=== PATIENT | male | born 1965 | race Caucasian/White ===

== ENCOUNTER 2018-01-17 00:15 | Inpatient (IN) | payer BC ==
[2018-01-17] VITALS (7 sets, daily range): BP systolic 105–147
[~2018-01-17] VITALS: Ht 175.3 cm; Wt 68.9 kg
[~2018-01-17 00:15] MED LIST: CYCL-365 PO; ENSURE PLUS GT; IBUP-784 PO; LEVO75TA7 GT; OMEP20CA10 GT
[2018-01-17] MEDS ORDERED: NACL 0.9% 1,000 ML IV ONE (00:34)
[2018-01-17] MEDS ORDERED: ONDANSETRON HCL 4 MG/2 ML VIAL IVP ONE (00:45)
[2018-01-17] MEDS ORDERED: KETOROLAC TROMETHAMINE 30 MG VIAL IVP ONE (00:45)
[2018-01-17 01:04] LABS: BASOPHILS # (AUTO) 0.1 K/uL (0.0-0.2); EOSINOPHILS # (AUTO) 0.3 K/uL (0.0-0.4); EOSINOPHILS % (AUTO) 5.3 % (0.0-4.0); HEMATOCRIT 44.3 % (36-54); HEMOGLOBIN 15.1 g/dL (14.0-18.0); LYMPHOCYTES # (AUTO) 2.1 K/uL (1.0-5.5); LYMPHOCYTES % (AUTO) 33.5 % (20.5-51.5); MEAN CORPUSCULAR HEMOGLOBIN 32 pg (27-31); MEAN CORPUSCULAR HGB CONC 34 % (32-36); MEAN CORPUSCULAR VOLUME 93 fL (79.0-98.0); MONOCYTES # (AUTO) 0.5 K/uL (0.0-1.0); MONOCYTES % (AUTO) 7.3 % (1.7-9.3); NEUTROPHILS # (AUTO) 3.3 K/uL (1.8-7.7); NEUTROPHILS % (AUTO) 52.9 % (40.0-70.0); PLATELET COUNT (AUTO) 275 K/uL (130-430); RED BLOOD CELL COUNT(AUTO) 4.74 MIL/uL (4.2-6.2); RED CELL DISTRIBUTION WIDTH 11.7 % (9.0-15.0); WHITE BLOOD COUNT (AUTO) 6.3 K/uL (4.8-10.8)
[2018-01-17 01:15] LABS: CALCIUM 8.8 mg/dL (8.4-11.0); CREATININE 1.28 mg/dL (0.55-1.30); POTASSIUM 3.9 mmol/L (3.5-5.1)
[2018-01-17] MEDS ORDERED: MORPHINE 4 MG/ML INJ. SYRINGE IVP ONE (01:15)
[2018-01-17 01:23] LABS: ALBUMIN 4.1 g/dL (3.4-4.8); TOTAL BILIRUBIN 0.3 mg/dL (0.0-1.0)
[2018-01-17] MEDS ORDERED: HYDROmorphone 1 MG INJ. 1 MG/ML AMPUL IVP ONE (01:45)
[2018-01-17] MEDS ORDERED: MORPHINE 4 MG/ML INJ. SYRINGE IVP PRN (02:00)
[2018-01-17] MEDS ORDERED: ONDANSETRON HCL 4 MG/2 ML VIAL IVP PRN ×2 (02:00→05:30)
[2018-01-17] MEDS ORDERED: LEVO112T5 PO (02:05)
[2018-01-17] MEDS: D5NS 1,000 ML IV SCH ×2 (02:44→14:44)
[2018-01-17] MEDS ORDERED: IPRATROPIUM/ALBUTEROL SULFATE 3 ML AMPUL.NEB INH PRN (05:30)
[2018-01-17] MEDS ORDERED: MORPHINE 2 MG/ML INJ. SYRINGE IVP PRN ×2 (05:30)
[2018-01-17] MEDS ORDERED: POTASSIUM CHLORIDE 20 MEQ TAB.PRT.SR PO PRN (05:30)
[2018-01-17] MEDS ORDERED: MAGNESIUM SULFATE 50 ML IV PRN (05:30)
[2018-01-17] MEDS ORDERED: MUPIROCIN 2% TOPICAL OINTMENT 22 GM NS PRN (05:30)
[2018-01-17] MEDS ORDERED: ZOLPIDEM TARTRATE 5 MG TABLET PO PRN (05:30)
[2018-01-17] MEDS ORDERED: DOCUSATE SODIUM 100 MG CAPSULE PO PRN (05:30)
[2018-01-17] MEDS ORDERED: LORazepam 2 MG/ML VIAL IVP PRN (05:30)
[2018-01-17] MEDS ORDERED: ACETAMINOPHEN 325 MG TABLET PO PRN (05:30)
[2018-01-17] MEDS ORDERED: LEVOTHYROXINE SODIUM 0.112 MG TABLET PO SCH (09:00)
[2018-01-17] MEDS: HEPARIN SODIUM,PORCINE 5000 UNITS/ML VIAL SUBCUT SCH ×2 (09:03→20:27)
[2018-01-18 01:22] VITALS: BP_SYST 101
[2018-01-18] MEDS: D5NS 1,000 ML IV SCH (06:09)
[2018-01-18 06:37] LABS: CREATININE 1.4 mg/dL (0.55-1.30)
[2018-01-18 06:58] LABS: BASOPHILS % (AUTO) 0.7 % (0.0-2.0); EOSINOPHILS # (AUTO) 0.2 K/uL (0.0-0.4); HEMATOCRIT 38.3 % (36-54); HEMOGLOBIN 13.2 g/dL (14.0-18.0); LYMPHOCYTES # (AUTO) 1.2 K/uL (1.0-5.5); LYMPHOCYTES % (AUTO) 21.4 % (20.5-51.5); MEAN CORPUSCULAR HEMOGLOBIN 33 pg (27-31); MEAN CORPUSCULAR HGB CONC 34 % (32-36); MEAN CORPUSCULAR VOLUME 95 fL (79.0-98.0); MONOCYTES # (AUTO) 0.4 K/uL (0.0-1.0); MONOCYTES % (AUTO) 6.4 % (1.7-9.3); NEUTROPHILS # (AUTO) 3.8 K/uL (1.8-7.7); NEUTROPHILS % (AUTO) 67.5 % (40.0-70.0); PLATELET COUNT (AUTO) 204 K/uL (130-430); RED BLOOD CELL COUNT(AUTO) 4.01 MIL/uL (4.2-6.2); RED CELL DISTRIBUTION WIDTH 11.8 % (9.0-15.0); WHITE BLOOD COUNT (AUTO) 5.6 K/uL (4.8-10.8)
[2018-01-18] MEDS ORDERED: LEVOTHYROXINE SODIUM 0.112 MG TABLET PO SCH (07:00)
[2018-01-18 08:04] VITALS: BP_SYST 105
[2018-01-18] MEDS: HEPARIN SODIUM,PORCINE 5000 UNITS/ML VIAL SUBCUT SCH (09:00)
[2018-01-18 10:24] VITALS: BP_SYST 105
== END 2018-01-18 10:50 | disposition home or self-care (01) | DRG 439 ==
LOC: SED 00:15 → SMU 01:50
PROVIDERS: ADMIT General Practice; ATTEND General Practice
DX: K85.90 Acute pancreatitis without necrosis or infection, unspecified (principal); N17.9 Acute kidney failure, unspecified; R09.02 Hypoxemia; E03.9 Hypothyroidism, unspecified; N40.0 Benign prostatic hyperplasia without lower urinary tract symptoms; J44.9 Chronic obstructive pulmonary disease, unspecified; R06.89 Other abnormalities of breathing; Z92.21 Personal history of antineoplastic chemotherapy; Z92.3 Personal history of irradiation; Z85.89 Personal history of malignant neoplasm of other organs and systems
CPT/HCPCS: 36415; 36600; 71045; 80048; 80053; 82803-TC; 83690-TC; 83735-TC; 85025; 94760; 96361; 96374; 96375; 99285; J1170; J1644; J1885; J2270; J2405; J7042

== ENCOUNTER 2023-11-06 12:13 | Emergency (ER) | payer BC ==
[~2023-11-06] VITALS: Ht 177.8 cm; Wt 68.0 kg
[~2023-11-06 12:13] MED LIST changes: -CYCL-365 PO; -ENSURE PLUS GT; -IBUP-784 PO; +LEVO112T5 PO; -LEVO75TA7 GT; -OMEP20CA10 GT
[2023-11-06 12:14] VITALS: BP_SYST 141; PULSE 71; PULSE 97; RESP 18; TEMP 97.9; O2SAT 71; O2SAT 97
[2023-11-06 13:30] LABS: BASOPHILS # (AUTO) 0.1 K/uL (0.0-0.2); BASOPHILS % (AUTO) 0.5 % (0.0-2.0); EOSINOPHILS # (AUTO) 0.2 K/uL (0.0-0.4); EOSINOPHILS % (AUTO) 1.6 % (0.0-4.0); HEMATOCRIT 40.4 % (36-54); HEMOGLOBIN 13.8 g/dL (14.0-18.0); LYMPHOCYTES # (AUTO) 1.3 K/uL (1.0-5.5); LYMPHOCYTES % (AUTO) 11.4 % (20.5-51.5); MEAN CORPUSCULAR HEMOGLOBIN 32 pg (27-31); MEAN CORPUSCULAR HGB CONC 34 % (32-36); MEAN CORPUSCULAR VOLUME 93 fL (79.0-98.0); MONOCYTES # (AUTO) 0.9 K/uL (0.0-1.0); MONOCYTES % (AUTO) 8.2 % (1.7-9.3); NEUTROPHILS # (AUTO) 8.7 K/uL (1.8-7.7); NEUTROPHILS % (AUTO) 78.3 % (40.0-70.0); PLATELET COUNT (AUTO) 221 K/uL (130-430); RED BLOOD CELL COUNT(AUTO) 4.34 MIL/uL (4.2-6.2); RED CELL DISTRIBUTION WIDTH 13.3 % (9.0-15.0); WHITE BLOOD COUNT (AUTO) 11.2 K/uL (4.8-10.8)
[2023-11-06 13:50] LABS: ANION GAP 5 (5-15); CALCIUM 9.1 mg/dL (8.4-11.0); CARBON DIOXIDE 31 mmol/L (23-29); CHLORIDE 100 mmol/L (98-107); CREATININE 1.24 mg/dL (0.55-1.30); GFR AFRICAN AMERICAN 77 mL/min (>90); GLUCOSE 98 mg/dL (74-106); SODIUM SERUM 136 mmol/L (136-145); UREA NITROGEN, BLOOD 39 mg/dL (8-21)
[2023-11-06 13:51] LABS: GFR NON AFRICAN-AMERICAN 64 mL/min (>90)
[2023-11-06] MEDS: ASPIRIN 325 MG TABLET GT ONE (14:46)
[2023-11-06 16:58] VITALS: BP_SYST 116; PULSE 68; RESP 22; TEMP 98.3; O2SAT 95
== END 2023-11-06 16:59 | disposition home or self-care (01) ==
LOC: SED 12:13
DX: R07.9 Chest pain, unspecified (principal); Z98.890 Other specified postprocedural states
CPT/HCPCS: 36415; 71045; 80048; 83880; 84484; 85025; 85379; 93005; 99285

== ENCOUNTER 2024-02-07 14:14 | Emergency (ER) | payer BC ==
[~2024-02-07] VITALS: Ht 172.7 cm; Wt 68.9 kg
[2024-02-07 14:34] VITALS: BP_SYST 112; PULSE 62; RESP 18; TEMP 97; O2SAT 96
[2024-02-07] MEDS ORDERED: GASTROGRAFIN 120 ML ONE (15:05)
[2024-02-07 15:50] VITALS: BP_SYST 118; PULSE 67; RESP 16; TEMP 97.2; O2SAT 97
== END 2024-02-07 16:00 | disposition home or self-care (01) ==
LOC: SED 14:14
DX: Z43.1 Encounter for attention to gastrostomy (principal); Z85.818 Personal history of malignant neoplasm of other sites of lip, oral cavity, and pharynx; Z79.899 Other long term (current) drug therapy
CPT/HCPCS: 99285; 43762; 74240; Q9963